=== PATIENT | female | born 1955 | race Caucasian/White ===

== ENCOUNTER 2021-12-09 10:29 | Emergency (ER) | payer MEDICARE ==
[~2021-12-09] VITALS: Ht 157.5 cm; Wt 97.5 kg
[2021-12-09] MEDS ORDERED: LIDOCAINE HCL/EPINEPHRINE 1%-EPI 1:100,000 20 ML VIAL INFIL ONE (10:45)
[2021-12-09] MEDS ORDERED: BACITRACIN ZINC OINT UDPKT TOP ONE (10:45)
[2021-12-09] MEDS ORDERED: ACETAMINOPHEN 500MG TABLET PO ONE (11:15)
[2021-12-09] MEDS ORDERED: LIDOCAINE HCL/EPINEPHRINE 1%-EPI 1:100,000 20 ML VIAL INFIL NR (12:53)
[2021-12-09] MEDS ORDERED: BACITRACIN ZINC OINT UDPKT TOP NR (12:53)
[2021-12-09 14:59] VITALS: BP 146/81
== END 2021-12-09 15:03 | disposition home or self-care (01) ==
LOC: ER 10:45
DX: S01.81XA Laceration without foreign body of other part of head, initial encounter (principal); M54.2 Cervicalgia; I10 Essential (primary) hypertension; W01.10XA Fall on same level from slipping, tripping and stumbling with subsequent striking against unspecified object, initial encounter; Y93.89 Activity, other specified; Y92.89 Other specified places as the place of occurrence of the external cause; Z85.118 Personal history of other malignant neoplasm of bronchus and lung; Z98.890 Other specified postprocedural states
CPT/HCPCS: 12014; 70450; 72125; 90471; 99284; J3490